=== PATIENT | male | born 2000 | race Caucasian/White ===

== ENCOUNTER 2019-05-29 11:49 | Emergency (ER) | payer SELFPAY ==
[2019-05-29] MEDS ORDERED: Diphtheria,Pertussis(Acell),Tetanus Vaccine 0.5 ML Syringe IM ONE (12:05)
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
[2019-05-29 12:31] VITALS: BP 144/73; PULSE 90
== END 2019-05-29 12:29 | disposition home or self-care (01) ==
LOC: JD.ED 11:49
DX: S61.216A Laceration without foreign body of right little finger without damage to nail, initial encounter (principal); V48.5XXA Car driver injured in noncollision transport accident in traffic accident, initial encounter; Y92.410 Unspecified street and highway as the place of occurrence of the external cause
CPT/HCPCS: 90471; 90715; 99282; 99284-25

== ENCOUNTER 2020-11-12 16:03 | Emergency (ER) | payer BC ==
[2020-11-12 16:16] VITALS: BP 131/75; PULSE 63
[2020-11-12] MEDS ORDERED: Ondansetron 4 MG Tab.DIS PO ONE (16:28)
[2020-11-12] MEDS ORDERED: Acetaminophen/oxyCODONE 325-5 MG Tab PO ONE (16:28)
[2020-11-12] MEDS ORDERED: Sodium Chloride 0.9% 10 ML Syringe FLUSH PRN (17:38)
[2020-11-12] MEDS ORDERED: Sodium Chloride 0.9% 1,000 ML IV SCH (17:45)
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
--- NOTE | 2020-11-12 18:31 | CR ---
Chest: Portable view of the chest was obtained. Comparison: Prior chest x-ray of 04/13/15. Heart size and mediastinum are normal. Lungs are clear with no acute parenchymal change. No discrete osseous abnormality is appreciated. Impression: 1. Nothing acute is seen on portable chest x-ray. Diagnostic code #1
--- NOTE | 2020-11-12 18:31 | CR ---
Right shoulder: 3 views of the right shoulder were obtained. Fracture is seen within the scapula which extends slightly below the glenoid and into the body of the scapula. Mild displacement appears to be present. Acromioclavicular joint shows nothing abnormal. Glenohumeral joint is maintained. Impression: 1. Right scapular fracture with mild displacement. 2. No additional abnormality is identified on right shoulder study. Diagnostic code #3
--- NOTE | 2020-11-12 18:45 | CT ---
CT chest Technique: Multiple axial sections were obtained from above the lung apices inferiorly through the lung bases. Intravenous contrast not utilized. Reconstructed coronal and sagittal images were obtained. Comparison: Prior chest x-ray performed earlier on the same day. Prior chest x-ray of 04/13/15 was also utilized. Findings: Mediastinum shows no adenopathy. Thoracic aorta shows no aneurysm. No axillary adenopathy is seen. No pericardial thickening is seen. Lungs are clear. No acute parenchymal change is seen. Right scapular fracture is noted. No other acute osseous abnormality is appreciated. Visualized upper abdominal structures shows nothing acute. Impression: 1. Right scapular fracture is again noted. 2. No additional osseous abnormality is seen. 3. Other portions of the CT chest study appear within normal limits. Diagnostic code #2
--- NOTE | 2020-11-14 08:58 | CT ---
CT right shoulder Technique: Multiple axial sections through the right shoulder were obtained which include the scapula. Reconstructed coronal and sagittal images were obtained. Findings: Fracture is noted within the scapula which begins inferior to the glenoid and shows minimal comminution. Alignment remains close to anatomic. Fracture then extends into the body of the scapula in two directions being inferior and superior. Superior fracture shows widening of the fracture line by about 6 mm. Inferior fracture is displaced by about 1.5 mm. Glenoid appears to be intact. Acromioclavicular joint and clavicle appear intact. Humerus appears intact. No discrete rib abnormality is seen within the upper right chest. Visualized lung is clear. Impression: 1. Right scapular fracture as described above. Diagnostic code #3 MTDD
== END 2020-11-12 19:25 | disposition home or self-care (01) ==
LOC: JD.ED 16:03
DX: S42.111A Displaced fracture of body of scapula, right shoulder, initial encounter for closed fracture (principal); W17.89XA Other fall from one level to another, initial encounter
CPT/HCPCS: 71045; 71250; 73030; 73200; 99284; A9270; J7030; 99283

== ENCOUNTER 2021-07-03 09:43 | Emergency (ER) | payer BC ==
[2021-07-03 11:55] LABS: CORONAVIRUS COVID-19 NAA NEGATIVE (NEGATIVE)
[2021-07-03] MEDS: Sodium Chloride 0.9% 1,000 ML IV STA (13:11)
[2021-07-03 15:21] VITALS: BP 87/69; PULSE 65
== END 2021-07-03 15:21 | disposition home or self-care (01) ==
LOC: JD.ED 09:43
DX: R07.89 Other chest pain (principal); Z20.822 Contact with and (suspected) exposure to COVID-19
CPT/HCPCS: 0240U; 36415; 71045; 80053; 81001; 82550; 84439; 84443; 84484; 85025; 85379; 86140; 93005; 99285; J7030; 93010

== ENCOUNTER 2022-06-13 12:12 | Emergency (ER) | payer BC ==
[2022-06-13 12:26] VITALS: BP 142/86; PULSE 71
[2022-06-13] MEDS ORDERED: Lactated Ringers 1,000 ML IV ONE (15:51)
== END 2022-06-13 18:43 | disposition home or self-care (01) ==
LOC: JD.ED 12:12
DX: K59.09 Other constipation (principal); Z79.899 Other long term (current) drug therapy
CPT/HCPCS: 36415; 80053; 81001; 83605; 83690; 85025; 99283; 99284

== ENCOUNTER 2022-11-12 20:42 | Emergency (ER) | payer BC ==
[2022-11-12] MEDS ORDERED: Ketorolac 60 MG/2 ML SDV IM ONE (21:51)
[2022-11-12 23:47] VITALS: BP 140/73; PULSE 65
== END 2022-11-12 23:36 | disposition home or self-care (01) ==
LOC: JD.ED 20:42
DX: M48.061 Spinal stenosis, lumbar region without neurogenic claudication (principal); M51.36 Other intervertebral disc degeneration, lumbar region
CPT/HCPCS: 72131; 96372; 99283; J1885